=== PATIENT | female | born 1935 | race Caucasian/White ===

== ENCOUNTER 2018-03-20 10:01 | Inpatient (IN) | payer MEDICARE, MEDICAID ==
[~2018-03-20] VITALS: Ht 162.6 cm; Wt 45.8 kg
[~2018-03-20 10:01] MED LIST: CITA20TA16 PO
--- NOTE | 2018-03-20 10:11 | NUR ---
aasherrell, SENT FROM [facility] FOR HYPOXIA AND GEN WEAKNESS, REQUIRING O2 AT 4L PER REPORT, O2 SAT 80'S AT FACILITY. Skin is warm and dry. Placed on the monitor. Will continuously monitor the patient. Awaiting MD for eval.
[2018-03-20] MEDS ORDERED: CEFTRIAXONE 1GM BAG (ER ONLY) 50 ML IV ONE (10:30)
[2018-03-20] MEDS ORDERED: IV NS 0.9% 1,000 ML BAG IV ONE (10:30)
[2018-03-20] MEDS ORDERED: VANCOMYCIN 1 GM in IV D5W 250 ML IV ONE (10:30)
[2018-03-20] MEDS ORDERED: LEVOFLOXACIN 750 MG /D5W 150ML 150 ML IV ONE (10:30)
--- NOTE | 2018-03-20 10:30 | NUR ---
PT IV STARTED 18G RT AC LABS AND CULTURES DONE FAMILY AT BEDSIDE VSS ABLE TO OPENS EYES NO SPEECH AWAITING EVALUATION BY ER PROVIDER.
[2018-03-20 10:41] LABS: BASOPHILS % (AUTO) 0.4 % (0.0-2.0); EOSINOPHILS % (AUTO) 0.1 % (0.0-6.0); HEMATOCRIT 42 % (33-45); LYMPHOCYTES # (AUTO) 0.6 /CMM (0.8-4.8); LYMPHOCYTES % (AUTO) 6.9 % (20.0-44.0); MEAN CORPUSCULAR HGB CONC 33 g/dl (31.0-36.0); MEAN CORPUSCULAR VOLUME 89 fL (82-100); MONOCYTES # (AUTO) 0.5 /CMM (0.1-1.30); MONOCYTES % (AUTO) 6.2 % (2.0-12.0); NEUTROPHILS % (AUTO) 86.4 % (43.0-81.0); PLATELET COUNT (AUTO) 173 /CMM (150-450); RDW COEFFICIENT OF VARIATION 12.2 (11.5-15.0); RED BLOOD CELL COUNT(AUTO) 4.75 MIL/uL (4.0-5.2); WHITE BLOOD COUNT (AUTO) 8.1 K/uL (4.3-11.0)
--- NOTE | 2018-03-20 10:48 | NUR ---
PT GIVEN NS BOLUS AND ANBX PER MD ORDER
[2018-03-20 10:55] LABS: INR 1.11 (0.85-1.15)
[2018-03-20 10:57] LABS: ALANINE AMINOTRANSFERASE 15 U/L (12-78); ALBUMIN 3.3 g/dL (3.4-5.0); ALKALINE PHOSPHATASE 65 U/L (46-116); ASPARTATE AMINOTRANSFERASE 12 U/L (15-37); BILIRUBIN,DIRECT 0.2 mg/dL (0.0-0.2); BILIRUBIN,TOTAL 0.6 mg/dL (0.2-1.0); CALCIUM, SERUM 8.8 mg/dL (8.5-10.1); CARBON DIOXIDE 30 mmol/L (21-32); CHLORIDE 104 mmol/L (98-107); CREATININE 0.9 mg/dL (0.6-1.3); GLUCOSE 131 mg/dL (74-106); POTASSIUM 4.1 mmol/L (3.5-5.1); SODIUM SERUM 140 mmol/L (136-145); TOTAL PROTEIN, SERUM 7.4 g/dL (6.4-8.2); UREA NITROGEN, BLOOD 16 mg/dL (7-18)
[2018-03-20 10:59] LABS: TROPONIN I < 0.017 ng/mL (0.00-0.056)
[2018-03-20 11:45] LABS: APPEARANCE,URINE Clear (CLEAR); BILIRUBIN,URINE SMALL (NEGATIVE); BLOOD, URINE Trace-intact Ery/uL (NEGATIVE); COLOR,URINE Yellow (YELLOW); KETONES,URINE 15 (NEGATIVE); LEUKOCYTE ESTERASE ,URINE Negative (NEGATIVE); NITRITE, URINE Negative (NEGATIVE); PROTEIN,URINE Trace mg/dl (NEGATIVE); UGLUCOSE Negative (NEGATIVE); UROBILINOGEN,URINE 0.2 EU/dL (0.2)
[2018-03-20 12:05] LABS: BACTERIA,URINE Few /HPF (None Seen); RBC,URINE 0-2 /HPF (0-2); SQUAMOUS EPITHELIAL CELL,UR Moderate /HPF (None Seen); WBC,URINE 0-2 /HPF (0-3)
--- NOTE | 2018-03-20 12:09 | NUR ---
PT SEEMS MORE RESPONIVE TO DAUGHTER.
[2018-03-20] MEDS ORDERED: CRAN425C6 PO (12:38)
[2018-03-20] MEDS ORDERED: CRAN3875 PO (12:38)
[2018-03-20] MEDS ORDERED: CALC-475 PO (12:38)
[2018-03-20] MEDS ORDERED: FOLI1TAB16 PO (12:38)
[2018-03-20] MEDS ORDERED: ACET-2605 PO (12:38)
[2018-03-20] MEDS ORDERED: AMIN30LI2 PO (12:38)
[2018-03-20] MEDS ORDERED: diphenhydrAMINE HCL 50 MG/ML VIAL ONE (13:03)
--- NOTE | 2018-03-20 13:06 | NUR ---
PT HAD REACTION TO THE VANCO STOPPED , 100CC WAS INFUSED THEN NOTIFIED MD OF REDNESS AT THE NECK AND FOREHEAD GIVEN BENADYL 25 MG IVP .PER
[2018-03-20] MEDS ORDERED: diphenhydrAMINE HCL 50 MG/ML VIAL IV ONE (13:30)
[2018-03-20] MEDS ORDERED: ACETAMINOPHEN ES 500 MG TABLET PO PRN (14:30)
[2018-03-20] MEDS ORDERED: IPRATROPIUM NEB FS 0.5 MG/2.5 ML AMPUL.NEB NEB PRN (14:30)
[2018-03-20] MEDS: IV NS 0.9% 1,000 ML IV PRN (14:35)
[2018-03-20 16:00] VITALS: BP 122/32
--- NOTE | 2018-03-20 16:36 | NUR ---
CHADWICK RN NOTE: CALLED AND SPOKE WITH SHRUTHI FROM [facility] AND ASKED HER REGARDING THE PATIENT'S IMMUNIZATION RECORD. PER SHRUTHI, THE DAUGHTER ELLEN HAS BEEN REFUSING FOR HER MOTHER TO RECEIVE THE INFLUENZA AND PNEUMONIA VACCINE SINCE 2014. DR. ANY FONTANEZ MADE AWARE.
[2018-03-20] MEDS: ZOSYN IVPB 3.375 G in IV D5W 50ml IV SCH (18:14)
[2018-03-20 20:00] VITALS: BP 121/47
[2018-03-21] VITALS (7 sets, daily range): BP systolic 92–141; BP diastolic 39–99
[2018-03-21] MEDS: ZOSYN IVPB 3.375 G in IV D5W 50ml IV SCH ×5 (00:31→23:24)
[2018-03-21] MEDS: IV NS 0.9% 1,000 ML IV PRN (06:09)
[2018-03-21 07:18] LABS: BASOPHILS % (AUTO) 0.2 % (0.0-2.0); EOSINOPHILS % (AUTO) 0.1 % (0.0-6.0); HEMATOCRIT 35 % (33-45); MEAN CORPUSCULAR HGB CONC 31 g/dl (31.0-36.0); MEAN CORPUSCULAR VOLUME 92 fL (82-100); MONOCYTES # (AUTO) 0.8 /CMM (0.1-1.30); MONOCYTES % (AUTO) 10.1 % (2.0-12.0); NEUTROPHILS # (AUTO) 5.9 /CMM (1.8-8.9); NEUTROPHILS % (AUTO) 76.6 % (43.0-81.0); PLATELET COUNT (AUTO) 144 /CMM (150-450); RED BLOOD CELL COUNT(AUTO) 3.81 MIL/uL (4.0-5.2); WHITE BLOOD COUNT (AUTO) 7.6 K/uL (4.3-11.0)
[2018-03-21 07:21] LABS: CARBON DIOXIDE 26 mmol/L (21-32); CHLORIDE 109 mmol/L (98-107); CREATININE 0.8 mg/dL (0.6-1.3); GLUCOSE 112 mg/dL (74-106); MAGNESIUM 1.6 mg/dL (1.8-2.4); PHOSPHORUS 2.5 mg/dL (2.5-4.9); POTASSIUM 3.5 mmol/L (3.5-5.1); SODIUM SERUM 144 mmol/L (136-145); UREA NITROGEN, BLOOD 13 mg/dL (7-18)
--- NOTE | 2018-03-21 08:00 | NUR ---
RN NOTES RECEIVED PATIENT LYING IN BED, OPENS EYES SPONTANEOUSLY, BREATHING EVEN AND UNLABORED, ON OXYGEN SUPPORT VIA NASAL CANNULA WITH 4LPM, SATURATING AT 100%, ON TELEMONITOR: SINUS RHYTHM WITH HR AT 75 AT THIS TIME, AFEBRILE AT 98.3, IV ON THE RIGHT AC INTACT AND PATENT ON FLUSHING, WITH ONGOING NS RUNNING WELL AT 75CC/HR. DAUGHTER AT BEDSIDE. CALL LIGHT LEFT WITHIN EASY REACH, ASPIRATION AND SAFETY MEASURES IN PLACE. WILL CONTINUE TO MONITOR. Addendum: 03/21/18 at 0835 by JYOTSNA LINCOLN RN OXYGEN SUPPORT VIA NASAL CANNULA WITH 5LPM
[2018-03-21] MEDS: CALCIUM CARB 600MG /VIT D 1 EACH TABLET PO SCH (09:13)
[2018-03-21] MEDS: PROSOURCE / PROSTAT (PYXIS) 30 ML UDC GT SCH (09:13)
[2018-03-21] MEDS: FOLIC ACID 1 MG TABLET PO SCH (09:13)
[2018-03-21] MEDS: Magnesium 1GM/D5W 100ML PREMIX 100 ML IV SCH ×2 (14:07→15:15)
[2018-03-21] MEDS: ENSURE ENLIVE CHOC 237 ML CAN PO SCH (18:36)
--- NOTE | 2018-03-21 19:18 | NUR ---
RN NOTES ENDORSED PATEINT FOR CONTINUITY OF CARE. NO ACUTE CHANGES NOTED FOR THE ENTIRE SHIFT. ALL NURSING NEEDS ANTICIPATED AND MET. SAFETY MEASURES MAINTAINED. CALL LIGHT WITHIN REACH.BED LOW AND LOCKED. DAUGHTER AT BEDSIDE
[2018-03-22] VITALS: BP 127/51
[2018-03-22] MEDS: IV NS 0.9% 1,000 ML IV PRN ×2 (02:48→22:15)
[2018-03-22] MEDS: ALBUTEROL FS 2.5 MG/0.5 ML VIAL.NEB NEB PRN (02:57)
[2018-03-22 04:00] VITALS: BP 109/50
[2018-03-22] MEDS: ZOSYN IVPB 3.375 G in IV D5W 50ml IV SCH ×3 (06:23→18:00)
[2018-03-22 06:33] LABS: CALCIUM, SERUM 7.8 mg/dL (8.5-10.1); CARBON DIOXIDE 28 mmol/L (21-32); CHLORIDE 111 mmol/L (98-107); CREATININE 0.6 mg/dL (0.6-1.3); GLUCOSE 103 mg/dL (74-106); MAGNESIUM 1.8 mg/dL (1.8-2.4); SODIUM SERUM 145 mmol/L (136-145); UREA NITROGEN, BLOOD 12 mg/dL (7-18)
--- NOTE | 2018-03-22 07:46 | NUR ---
RN NOTES RECEIVED PATIENT COMFORTABLY SLEEPING, BREATHING EVEN AND UNLABORED, ON OXYGEN SUPPORT VIA NASAL CANNULA AT 4LPM, SATURATING AT 98%, ON TELEMONITOR: SINUS RHYTHM WITH HR AT 62 AT THIS TIME, AFEBRILE AT 98.3, IV ON THE RIGHT AC INTACT AND PATENT ON FLUSHING, WITH ONGOING NS RUNNING WELL AT 75CC/HR. DAUGHTER AT BEDSIDE. CALL LIGHT LEFT WITHIN EASY REACH, ASPIRATION AND SAFETY MEASURES IN PLACE. WILL CONTINUE TO MONITOR.
[2018-03-22 08:00] VITALS: BP_SYST 110; BP_SYST 98; BP_DIAS 41
[2018-03-22] MEDS: ENSURE ENLIVE CHOC 237 ML CAN PO SCH ×3 (08:06→17:18)
[2018-03-22] MEDS: FOLIC ACID 1 MG TABLET PO SCH (08:37)
[2018-03-22] MEDS: CALCIUM CARB 600MG /VIT D 1 EACH TABLET PO SCH (08:37)
[2018-03-22] MEDS: PROSOURCE / PROSTAT (PYXIS) 30 ML UDC GT SCH (08:37)
[2018-03-22] MEDS ORDERED: POTASSIUM CHLORIDE 20 MEQ POWDER PACKET PO SCH (11:00)
[2018-03-22] MEDS: POTASSIUM CL. PREMIX PERIPHER. 50 ML IV SCH ×4 (11:10→15:40)
[2018-03-22 12:00] VITALS: BP 118/45
[2018-03-22] MEDS: IPRATROPIUM NEB FS 0.5 MG/2.5 ML AMPUL.NEB NEB SCH ×3 (14:18→20:09)
[2018-03-22 16:00] VITALS: BP_SYST 134; BP_SYST 154; BP_DIAS 65
[2018-03-22] MEDS ORDERED: Z GUARD REMEDY 2 OZ OINT TP PRN (17:00)
--- NOTE | 2018-03-22 19:20 | NUR ---
RN NOTES ENDORSED PATIENT FOR CONTINUITY OF CARE. NO ACUTE CHANGES FOR THE ENTIRE SHIFT. ALL NURSING NEEDS ANTICIPATED AND MET. ASPIRATION PRECAUTION AND SAFETY MAINTAINED AT ALL TIME. DAUGHTER AT BEDSIDE.
[2018-03-22 20:00] VITALS: BP 125/43
[2018-03-23] VITALS: BP 113/41
[2018-03-23] MEDS: ZOSYN IVPB 3.375 G in IV D5W 50ml IV SCH ×4 (00:02→18:02)
[2018-03-23] MEDS: IPRATROPIUM NEB FS 0.5 MG/2.5 ML AMPUL.NEB NEB SCH ×7 (00:12→22:55)
[2018-03-23 04:00] VITALS: BP 108/44
--- NOTE | 2018-03-23 06:27 | NUR ---
RN NOTE PATIENT RESTED WELL AT NIGHT, DAUGHTER IS BY BEDSIDE THROUGHOUT NIGHT, NO DISTRESS NOTED, ASPIRATION PRECAUTION TAKEN, TURNED AND REPOSITION Q 2 HOURS, ALL SAFETY MEASURES TAKEN, WILL ENDORSE TO AM SHIFT TO CONTINUE CARE
[2018-03-23 06:37] LABS: BASOPHILS % (AUTO) 0.6 % (0.0-2.0); EOSINOPHILS % (AUTO) 0.9 % (0.0-6.0); HEMATOCRIT 32 % (33-45); HEMOGLOBIN 10.7 g/dL (11.5-14.8); LYMPHOCYTES # (AUTO) 0.9 /CMM (0.8-4.8); LYMPHOCYTES % (AUTO) 18.6 % (20.0-44.0); MEAN CORPUSCULAR HGB CONC 34 g/dl (31.0-36.0); MEAN CORPUSCULAR VOLUME 92 fL (82-100); MONOCYTES # (AUTO) 0.5 /CMM (0.1-1.30); NEUTROPHILS # (AUTO) 3.3 /CMM (1.8-8.9); NEUTROPHILS % (AUTO) 69.9 % (43.0-81.0); PLATELET COUNT (AUTO) 143 /CMM (150-450); RDW COEFFICIENT OF VARIATION 12.6 (11.5-15.0); RED BLOOD CELL COUNT(AUTO) 3.45 MIL/uL (4.0-5.2); WHITE BLOOD COUNT (AUTO) 4.7 K/uL (4.3-11.0)
[2018-03-23 07:20] LABS: ALANINE AMINOTRANSFERASE 10 U/L (12-78); ALBUMIN 2.2 g/dL (3.4-5.0); ALKALINE PHOSPHATASE 37 U/L (46-116); ASPARTATE AMINOTRANSFERASE 15 U/L (15-37); BILIRUBIN,TOTAL 0.5 mg/dL (0.2-1.0); CALCIUM, SERUM 8.1 mg/dL (8.5-10.1); CARBON DIOXIDE 26 mmol/L (21-32); CHLORIDE 109 mmol/L (98-107); CREATININE 0.6 mg/dL (0.6-1.3); GLUCOSE 95 mg/dL (74-106); MAGNESIUM 1.5 mg/dL (1.8-2.4); POTASSIUM 3.3 mmol/L (3.5-5.1); SODIUM SERUM 142 mmol/L (136-145); TOTAL PROTEIN, SERUM 5.6 g/dL (6.4-8.2); UREA NITROGEN, BLOOD 8 mg/dL (7-18)
--- NOTE | 2018-03-23 07:25 | NUR ---
VEHICLE TRIMMER OPENING NOTES RECEIVED REPORT FROM PM NURSE.PATIENT COMFORTABLY SLEEPING, BREATHING EVEN AND UNLABORED, ON OXYGEN 4L VIA NASAL CANNULA.ON TELE MONITOR: SINUS RHYTHM WITH HR AT 64 AT THIS TIME, IV ON THE LFA INTACT AND PATENT ON FLUSHING, WITH ONGOING NS RUNNING WELL AT 40CC/HR. DAUGHTER AT BEDSIDE. CALL LIGHT LEFT WITHIN EASY REACH, ASPIRATION AND SAFETY MEASURES IN PLACE. BED IS LOW AND IN LOCKED POSITION.WILL CONTINUE TO MONITOR.
[2018-03-23 08:00] VITALS: BP 108/46
[2018-03-23] MEDS: ENSURE ENLIVE CHOC 237 ML CAN PO SCH ×3 (08:04→17:00)
[2018-03-23] MEDS: CALCIUM CARB 600MG /VIT D 1 EACH TABLET PO SCH (08:46)
[2018-03-23] MEDS: FOLIC ACID 1 MG TABLET PO SCH (08:46)
[2018-03-23] MEDS: PROSOURCE / PROSTAT (PYXIS) 30 ML UDC GT SCH ×2 (08:46→09:00)
[2018-03-23] MEDS: Magnesium 1GM/D5W 100ML PREMIX 100 ML IV SCH ×2 (09:09→13:36)
--- NOTE | 2018-03-23 09:30 | NUR ---
RN NOTE PATIENT NOT SWALLOWING.POCKETING FOOD.DID NOT TAKE PROSTAT.ABLE TO TAKE MEDS HAFF.
--- NOTE | 2018-03-23 09:59 | NUR ---
RN NOTES SEEN BY SPEECH THERAPIST.FAILED SWALLOW EVAL.DAUGHTER AWARE.
[2018-03-23] MEDS: POTASSIUM CL. PREMIX PERIPHER. 50 ML IV SCH ×2 (10:20→11:35)
[2018-03-23] MEDS ORDERED: MINERAL OIL 133 ML (PYXIS) 1 EA ENEMA RC ONE (11:00)
[2018-03-23] MEDS: IV D5/ 0.9% NACL 1,000 ML IV PRN (11:06)
--- NOTE | 2018-03-23 15:54 | NUR ---
RT PATIENTS DAUGHTER REFUSED RESP HHN TX. PATIENT DIM CLEAR B/S. NO SOB NOTED.
[2018-03-23 16:00] VITALS: BP 129/60
[2018-03-23] MEDS ORDERED: K PHOS NEUTRAL 250 MG TABLET PO ONE (18:30)
--- NOTE | 2018-03-23 18:45 | NUR ---
MOLD FORMS BUILDER CLOSING NOTES PATIENT COMFORTABLY RESTING ON THE BED, BREATHING EVEN AND UNLABORED, ON OXYGEN 4L VIA NASAL CANNULA. IV ON THE LFA INTACT AND PATENT WITH ONGOING D5NS RUNNING WELL AT 75CC/HR. DAUGHTER AT BEDSIDE. CALL LIGHT WITHIN EASY REACH, ASPIRATION AND SAFETY MEASURES IN PLACE. BED IS LOW AND IN LOCKED POSITION.DAUGHTER IS NON COMPLAINT ABOUT FEEDING PATIENT.INSTRUCTED TO WAIT UNTIL NEXT SWALLOW EVAL TO FEED PATIENT BUT NOT FOLLOWING INSTRUCTIONS.WILL ENDORSE TO PM NURSE FOR JAIME.
--- NOTE | 2018-03-23 18:50 | NUR ---
RN NOTES MEDICATION PO NOT ADMINISTERED.BECAUSE PATIENT NOT SWALLOWING.
[2018-03-23] MEDS ORDERED: NEUTRA PHOS 1 POWD.PACKET PO ONE (19:00)
[2018-03-23 20:00] VITALS: BP 131/50
--- NOTE | 2018-03-23 20:00 | NUR ---
CHADWICK RN OPENING NOTES RECEIVED REPORT FROM AM NURSE.PATIENT COMFORTABLY SLEEPING, BREATHING EVEN AND UNLABORED, ON OXYGEN 4L VIA NASAL CANNULA WITH SPO2 OF 98% AT THIS TIME, IV ON THE LFA INTACT AND PATENT ON FLUSHING, WITH ONGOING D5 NS RUNNING WELL AT 75CC/HR. DAUGHTER AT BEDSIDE. CALL LIGHT LEFT WITHIN EASY REACH, ASPIRATION AND SAFETY MEASURES IN PLACE. BED IS LOW AND IN LOCKED POSITION.WILL CONTINUE TO MONITOR.
[2018-03-23 20:01] VITALS: BP 131/50
[2018-03-24] MEDS: ZOSYN IVPB 3.375 G in IV D5W 50ml IV SCH ×5 (00:46→23:45)
[2018-03-24] MEDS: IPRATROPIUM NEB FS 0.5 MG/2.5 ML AMPUL.NEB NEB SCH ×6 (03:05→23:30)
[2018-03-24] MEDS: ALBUTEROL FS 2.5 MG/0.5 ML VIAL.NEB NEB PRN (03:05)
[2018-03-24 04:00] VITALS: BP 123/42
[2018-03-24] MEDS: IV D5/ 0.9% NACL 1,000 ML IV PRN (06:10)
--- NOTE | 2018-03-24 06:46 | NUR ---
RN CLOSING NOTES PATIENT COMFORTABLY RESTING IN BED, BREATHING EVEN AND UNLABORED, ON OXYGEN 4L VIA NASAL CANNULA. IV ON THE LFA INTACT AND PATENT WITH ONGOING D5NS RUNNING WELL AT 75CC/HR. CALL LIGHT WITHIN EASY REACH, ASPIRATION AND SAFETY MEASURES IN PLACE. BED IS LOW AND IN LOCKED POSITION.WILL ENDORSE UPCOMING AM SHIFT NURSE FOR ORGANIZATIONAL EFFECTIVENESS DIRECTOR.
[2018-03-24 07:00] LABS: CALCIUM, SERUM 7.7 mg/dL (8.5-10.1); CARBON DIOXIDE 29 mmol/L (21-32); CHLORIDE 111 mmol/L (98-107); CREATININE 0.7 mg/dL (0.6-1.3); GLUCOSE 140 mg/dL (74-106); MAGNESIUM 1.8 mg/dL (1.8-2.4); POTASSIUM 2.9 mmol/L (3.5-5.1); SODIUM SERUM 146 mmol/L (136-145); UREA NITROGEN, BLOOD 5 mg/dL (7-18)
[2018-03-24 08:00] VITALS: BP 117/52
--- NOTE | 2018-03-24 08:00 | NUR ---
RN NOTES RECEIVED PATIENT LYING IN BED, LETHARGIC, NONVERBAL, BREATHING EVEN AND UNLABORED, ON OXYGEN SUPPORT VIA NASAL CANNULA WITH 4LPM, SATURATING AT 99%,AFEBRILE AT 98.6, IV LEFT FOREARM G 24, IN PLACE AND PATENT ON FLUSHING, WITH ONGOING D5NS RUNNING WELL AT 75CC/HR. DAUGHTER AT BEDSIDE. CALL LIGHT LEFT WITHIN EASY REACH, ASPIRATION AND SAFETY MEASURES IN PLACE. WILL CONTINUE TO MONITOR.
--- NOTE | 2018-03-24 08:30 | NUR ---
RN NOTES SEEN AND EXAMINED BY DR FAGAN. NO NEW ORDERS AT THIS TIME. DAUGHTER WITH THOUGHTS OF HAVING MOTHER PLACED ON HOSPICE RELAYED TO MD BUT ALSO CLAIMED THAT SHE HAS NOT MADE THE DECISION YET.
[2018-03-24] MEDS: PROSOURCE / PROSTAT (PYXIS) 30 ML UDC GT SCH (08:46)
[2018-03-24] MEDS: FOLIC ACID 1 MG TABLET PO SCH (08:47)
[2018-03-24] MEDS: CALCIUM CARB 600MG /VIT D 1 EACH TABLET PO SCH (08:47)
[2018-03-24] MEDS: ENSURE ENLIVE CHOC 237 ML CAN PO SCH ×3 (08:47→17:32)
[2018-03-24] MEDS ORDERED: POTASSIUM CHLORIDE 20 MEQ POWDER PACKET PO SCH (09:30)
[2018-03-24 12:00] VITALS: BP 117/52
--- NOTE | 2018-03-24 12:00 | NUR ---
RN NOTES SEEN AND EXAMINED BY THE ST. PER ST WILL CONTINUE PUREE WITH HONEY THICK LIQUID. PATIENT WITH POOR ORAL INTAKE.
[2018-03-24] MEDS: Potassium Chloride 40 MEQ in IV D5/ 0.9% NACL 1,000 ML IV PRN (13:03)
[2018-03-24 16:00] VITALS: BP 133/52
--- NOTE | 2018-03-24 19:30 | NUR ---
RN NOTES ENDORSED FOR CONTINUITY OF CARE. NO ACUTE CHANGES FOR THE ENTIRE SHIFT. SAFETY AND ASPIRATION PRECAUTION IN PLACE ALL THE TIME. CASE MANAGEMENT TEAM INFORMED ABOUT DAUGHTER'S INQUIRY OF HOSPICE CARE.
[2018-03-24 20:00] VITALS: BP 138/52
[2018-03-25] MEDS: IPRATROPIUM NEB FS 0.5 MG/2.5 ML AMPUL.NEB NEB SCH ×6 (03:30→23:30)
[2018-03-25 04:00] VITALS: BP 150/54
[2018-03-25] MEDS: ZOSYN IVPB 3.375 G in IV D5W 50ml IV SCH ×4 (05:07→23:11)
[2018-03-25] MEDS: Potassium Chloride 40 MEQ in IV D5/ 0.9% NACL 1,000 ML IV PRN (05:07)
[2018-03-25 06:59] LABS: CARBON DIOXIDE 29 mmol/L (21-32); CHLORIDE 112 mmol/L (98-107); CREATININE 0.6 mg/dL (0.6-1.3); GLUCOSE 119 mg/dL (74-106); POTASSIUM 3.3 mmol/L (3.5-5.1); SODIUM SERUM 148 mmol/L (136-145); UREA NITROGEN, BLOOD 3 mg/dL (7-18)
--- NOTE | 2018-03-25 07:10 | NUR ---
MS RN OPENING NOTE RECEIVED PATIENT IN BED. SLEEPING, PATIENT RESPONDS TO PHYSICAL STIMULI WITH EYE OPENING, NON VERBAL. ON 4L O2 VIA NC, TOLERATING WELL. IN NO APPARENT DISTRESS OR DISCOMFORT AT THIS TIME. RESPIRATIONS EVEN AND UNLABORED. RIGHT WRIST IVC 22G, WITH FLUIDS RUNNING AT 75ML/HR, PATENT AND INTACT. DIAPER IN PLACE FOR ELIMINATION. KEPT CLEAN AND COMFORTABLE. ALL NEEDS ATTENDED. SAFETY MEASURES IN PLACE, BED IN LOW LOCKED POSITION, SIDE RAILS UP X3, CALL LIGHT WITHIN EASY REACH, WILL CONTINUE TO MONITOR.
[2018-03-25 08:00] VITALS: BP 138/53
--- NOTE | 2018-03-25 08:40 | NUR ---
Patient's daughter (Nataly) refused tx, because she wants her mother to sleep.
[2018-03-25] MEDS: PROSOURCE / PROSTAT (PYXIS) 30 ML UDC GT SCH (09:04)
[2018-03-25] MEDS: CALCIUM CARB 600MG /VIT D 1 EACH TABLET PO SCH (09:04)
[2018-03-25] MEDS: FOLIC ACID 1 MG TABLET PO SCH (09:04)
[2018-03-25] MEDS: ENSURE ENLIVE CHOC 237 ML CAN PO SCH ×3 (09:05→17:00)
--- NOTE | 2018-03-25 10:00 | NUR ---
DISCUSSED WITH PATIENT'S DAUGHTER THAT PATIENT IS AT RISK FOR ASPIRATION IF CONTINUED TO FEED SHE FAILED HER SWALLOW EVALUATION. PATIENT'S DAUGHTER STATED SHE SPOKE WITH THE DOCTOR AND REFUSED FEEDING TUBES. SHE CONTINUES FEEDING THE PATIENT THICK LIQUID FOOD. MD AWARE. RISKS AND BENEFITS DISCUSSED. WILL CONTINUE TO MONITOR.
--- NOTE | 2018-03-25 10:03 | NUR ---
PATIENT'S DAUGHTER, ELLEN, REFUSED SPEECH THERAPY. WILL NOTIFY THE DOCTOR AND THE SPEECH THERAPIST, WILL CONTINUE TO MONITOR.
[2018-03-25 12:00] VITALS: BP_SYST 138; BP_SYST 142; BP_DIAS 47; BP_DIAS 53
[2018-03-25 16:00] VITALS: BP 131/57
--- NOTE | 2018-03-25 19:35 | NUR ---
MS RN CLOSING NOTE PATIENT IN BED. AWAKE, PATIENT RESPONDS TO PHYSICAL STIMULI WITH EYE OPENING, NON VERBAL. ON 3L O2 VIA NC, TOLERATING WELL. IN NO APPARENT DISTRESS OR DISCOMFORT AT THIS TIME. RESPIRATIONS EVEN AND UNLABORED. RIGHT WRIST IVC 22G, WITH FLUIDS RUNNING AT 75ML/HR, PATENT AND INTACT. DIAPER IN PLACE FOR ELIMINATION. KEPT CLEAN AND COMFORTABLE. ALL NEEDS ATTENDED, ORDERS RENDERED, TURNED AND REPOSITIONED Q2HRS. SAFETY MEASURES IN PLACE, DAUGHTER AT BEDSIDE. BED IN LOW LOCKED POSITION, SIDE RAILS UP X3, CALL LIGHT WITHIN EASY REACH, WILL ENDORSE TO PM NURSE FOR JAIME.
--- NOTE | 2018-03-25 19:40 | NUR ---
MS RN NOTE RECEIVED PATIENT FROM DAY SHIFT, PATIENT IS NON-VERBAL, NO S/S OF RESPIRATORY DISTRESS AND NO FACIAL GRIMACE NOTED. IV ON RIGHT WRIST IS PATENT AND INTACT, FLUID IS RUNNING. CARDOZA CATH NOTED WITH YELLOW CLEAR URINE PRESENT. SRX2, BED IN LOW POSITION, CALL LIGHT WITHIN REACH, WILL CONTINUE TO MONITOR PATIENT. Addendum: 03/25/18 at 2038 by LATRICE SPEAR RN CORRECTION; PATIENT HAS NO CARDOZA. ON DIAPER.
[2018-03-25 20:00] VITALS: BP 133/61
[2018-03-26] VITALS: BP 128/55
[2018-03-26] MEDS: IPRATROPIUM NEB FS 0.5 MG/2.5 ML AMPUL.NEB NEB SCH ×6 (03:16→23:49)
[2018-03-26 04:00] VITALS: BP 129/51
[2018-03-26] MEDS: ZOSYN IVPB 3.375 G in IV D5W 50ml IV SCH ×3 (05:30→17:04)
--- NOTE | 2018-03-26 06:33 | NUR ---
MS RN NOTE PATIENT IS SLEEPING IN BED COMFORTABLY, NO ACUTE EVENT NOTED THROUGHOUT THE SHIFT. IV ON RIGHT WRIST IS PATENT AND INTACT, FLUID IS RUNNING. WILL ENDORSE TO DAY SHIFT NURSE FOR JAIME.
--- NOTE | 2018-03-26 07:15 | NUR ---
RN NOTES RECEIVED PT ON BED, NONVERBAL ,RESPIRATION EVEN AND UNLABORED, NO SOB NOTED, ON 3L O2 N/C, D51/2NS WITH 40MEQ KCL AT 75CC/HR RUNNING VIA R Enubila IV G 22, SITE CLEAN , DRY AND INTACT, SR UP x3, CALL LIGHT WITHIN EASY REACH, BED LOCKED AND IN LOWEST POSITION, CONTINUE TO MONITOR.
[2018-03-26 08:00] VITALS: BP 144/52
[2018-03-26] MEDS: ENSURE ENLIVE CHOC 237 ML CAN PO SCH ×3 (08:09→16:38)
[2018-03-26] MEDS: FOLIC ACID 1 MG TABLET PO SCH (08:09)
[2018-03-26] MEDS: CALCIUM CARB 600MG /VIT D 1 EACH TABLET PO SCH (08:09)
[2018-03-26] MEDS: PROSOURCE / PROSTAT (PYXIS) 30 ML UDC GT SCH (08:10)
[2018-03-26] MEDS: Potassium Chloride 40 MEQ in IV D5/ 0.9% NACL 1,000 ML IV PRN (10:07)
--- NOTE | 2018-03-26 12:00 | NUR ---
RN NOTES POOR APPETIE, ENCOUGED PO INTAKE , HOB ELEVATED, SUPPORTIVE FAMILY AT THE BEDSIDE
[2018-03-26 16:00] VITALS: BP 151/52
--- NOTE | 2018-03-26 18:40 | NUR ---
RN NOTES PT MARCIO , NO SIGNIFICANT CHANGES NOTED ON THIS SHIFT , IVF INFUSING AT 75CC/HR , SR UP x3, CALL LIGHT WITHIN EASY REACH, WILL ENDORSE TO GRINDING AND SPRAYING SUPERVISOR NURSE FOR CONTINUITY OF CARE
[2018-03-26 20:00] VITALS: BP 137/43
[2018-03-27] VITALS: BP 140/50
[2018-03-27] MEDS: ZOSYN IVPB 3.375 G in IV D5W 50ml IV SCH ×3 (00:02→12:23)
[2018-03-27] MEDS: IPRATROPIUM NEB FS 0.5 MG/2.5 ML AMPUL.NEB NEB SCH ×4 (03:27→14:59)
[2018-03-27 04:00] VITALS: BP 149/57
--- NOTE | 2018-03-27 06:40 | NUR ---
MS RN NOTES AWAKE & NON VERBAL. NOT IN ANY DISTRESS. NO SOB NOTED. NO S/SX OF ANY PAIN OR DISCOMFORT AT THIS TIME. WITH IVF INFUSING WELL. AM CARE DONE. MONITORED ACCORDINGLY. CALL LIGHT WITHIN REACH. BED IN LOWEST POSITION. SR UP X 3 FOR SAFETY. WILL ENDORSE TO NEXT SHIFT.
[2018-03-27 08:00] VITALS: BP_SYST 131; BP_SYST 139; BP_DIAS 54; BP_DIAS 57
--- NOTE | 2018-03-27 08:00 | NUR ---
RN NOTES RECEIVED COMFORTABLY SLEEPING IN BED, NO SIGN OF SHORTNESS OF BREATH NOTED, WITH OXYGEN SUPPORT VIA NASAL CANNULA WITH 2LPM, SATURATING WELL 93%, AFEBRILE AT 97.8. NO INDICATION OF PAIN NOTED. IVL ON THE RIGHT WRIST: IN PLACE AND INTACT ON FLUSHING, ONGOING D5NS WITH 40MEQ KCL RUNNING AT 10CC/HR, PATIENT KEEP COMFORTABLE, ASPIRATION AND SAFETY MEASURES KEEP IN PLACE, CALL LIGHT LEFT WITHIN REACH, WILL CONTINUE TO MONITOR CLOSELY
[2018-03-27] MEDS: PROSOURCE / PROSTAT (PYXIS) 30 ML UDC GT SCH (08:24)
[2018-03-27] MEDS: CALCIUM CARB 600MG /VIT D 1 EACH TABLET PO SCH (08:24)
[2018-03-27] MEDS: FOLIC ACID 1 MG TABLET PO SCH (08:24)
[2018-03-27] MEDS: ENSURE ENLIVE CHOC 237 ML CAN PO SCH ×2 (08:25→12:24)
--- NOTE | 2018-03-27 10:00 | NUR ---
RN NOTES DAUGHTER AT BEDSIDE, WITH CONCERNS ABOUT HOSPICE CARE. INFORMED CASE MANAGEMENT THAT DAUGHTER WANTED O TALKED TO THEM. ALSO DAUGHTER WANTED PATIENT TO BE DISCHARGE "THERE IS NO QUALITY WITH THIS KIND OF LIFE". DAUGHTER INFORMED THAT MD WILL BE MADE AWARE ABOUT REQUEST.
--- NOTE | 2018-03-27 10:35 | NUR ---
RN NOTES DISCHARGED ORDER FROM THE DR BOTELLO OBTAINED. ORDER NOTED AND CARRIED OUT.
[2018-03-27] MEDS ORDERED: ALLA266C2 TP (10:36)
[2018-03-27] MEDS: Potassium Chloride 40 MEQ in IV D5/ 0.9% NACL 1,000 ML IV PRN (11:51)
[2018-03-27 12:00] VITALS: BP 131/49
--- NOTE | 2018-03-27 14:00 | NUR ---
RN NOTES PATIENT ENDORSED TO [facility] FOR CONTINUITY OF CARE. SPOKE TO MANOJ WHITLEY.
--- NOTE | 2018-03-27 16:25 | NUR ---
RN NOTES PATIENT DISCHARGED TO [facility]. EXIT CARE DONE. ALL CONCERNS AND QUESTIONS ADDRESSED APPROPRIATELY. PICTURES NOT TAKEN DUE TO PATIENT SKIN INTACT. ALL BELONGINGS ACCOUNTED AND RETURNED WITH PATIENT. ENDORSEMENT GIVEN TO MANOJ WHITLEY PRIOR TO TRANSPORT. DISCHARGED INSTRUCTION PACKET HAND OVERED TO THE EMT. PATIENT LEFT FACILITY VIA GURNEY ACCOMPANIED BY LEIGH ANN (DAUGHTER) AND 2 EMT.
== END 2018-03-27 16:25 | DRG 177 ==
LOC: ER 10:03 → TELE-TD 13:26 → TELE1 03-21 17:44 → MEDSG1 03-23 08:52
PROVIDERS: ADMIT Internal Medicine Nephrology; ATTEND Internal Medicine Nephrology
DX: J15.6 Pneumonia due to other Gram-negative bacteria (principal); G92 Toxic encephalopathy; E44.1 Mild protein-calorie malnutrition; J15.9 Unspecified bacterial pneumonia; G30.9 Alzheimer's disease, unspecified; F02.80 Dementia in other diseases classified elsewhere, unspecified severity, without behavioral disturbance, psychotic disturbance, mood disturbance, and anxiety; D64.89 Other specified anemias; E83.42 Hypomagnesemia; F09 Unspecified mental disorder due to known physiological condition; R13.10 Dysphagia, unspecified; Z87.891 Personal history of nicotine dependence; Z66 Do not resuscitate
CPT/HCPCS: 36415; 70450-TC; 71045-TC; 80048-TC; 80053-TC; 80076-TC; 81000-TC; 82962-TC; 83605-TC; 83735-TC; 84100-TC; 84443-TC; 84484-TC; 85025-TC; 85652-TC; 85730-TC; 87040-TC; 87081-TC; 87086-TC; 92526; 92611-TC; 94799-TC; A4606; J0696; J1200; J2543; J3370; J3475; J3480; J7030; J7042; J7060; Z7610